=== PATIENT | male | born 1960 | race Two or more races ===

== ENCOUNTER 2025-05-31 09:26 | Emergency (ER) | payer MEDICARE, OTHER ==
[~2025-05-31] VITALS: Ht 177.8 cm; Wt 108.4 kg
[2025-05-31 10:04] LABS: PLATELET COUNT (AUTO) 358 K/uL (150-450); RED BLOOD CELL COUNT(AUTO) 5.17 MIL/uL (4.50-5.90); RED CELL DISTRIBUTION WIDTH 13.1 % (11.5-14.5); WHITE BLOOD COUNT (AUTO) 19.5 K/uL (4.5-11.0)
[2025-05-31 10:09] LABS: CALCIUM, TOTAL 9.7 mg/dL (8.8-10.5); CREATININE 1.05 mg/dL (0.60-1.30); GLOMERULAR FILTR. RATE CALC > 60 mL/min (>60); GLUCOSE,RANDOM 136 mg/dL (70-110); SODIUM SERUM 137 mmol/L (136-145); UREA NITROGEN, BLOOD 20 mg/dL (7-18)
[2025-05-31] MEDS ORDERED: 0.9% SODIUM CHLORIDE 10 ML SYRINGE IVP PRN (10:15)
[2025-05-31 10:20] LABS: TROPONIN I-HIGH SENSITIVITY Less Than 4 ng/L (<76)
[2025-05-31 10:24] LABS: APPEARANCE,URINE CLEAR (CLEAR); GLUCOSE, URINE (UA) NEGATIVE (NEGATIVE); LEUKOCYTE ESTERASE ,URINE TRACE (NEGATIVE); NITRATE,URINE NEGATIVE (NEGATIVE); OCCULT BLOOD,URINE NEGATIVE (NEGATIVE); SPECIFIC GRAVITIY, URINE 1.016 (1.003-1.030)
[2025-05-31] MEDS: SODIUM CHLORIDE 0.9% 2,000 ML IV ONE (10:29)
[2025-05-31] MEDS: CefTRIAXone 1 GM/DEXTROSE 50 ML IV ONE (10:30)
[2025-05-31] MEDS: ONDANSETRON HCL 4 MG/2 ML VIAL IVP ONE (10:31)
[2025-05-31] MEDS: MORPHINE SULFATE 4 MG/ML SYRINGE IVP ONE ×3 (10:45→15:53)
[2025-05-31 11:12] LABS: LACTIC ACID 1.5 mmol/L (0.4-2.0)
[2025-05-31 11:19] LABS: ASPARTATE AMINOTRANSFERASE 25 U/L (15-37); TOTAL PROTEIN, SERUM 8.1 g/dL (6.4-8.2)
[2025-05-31] MEDS ORDERED: MORPHINE SULFATE 2 MG/ML SYRINGE IVP ONE (15:45)
[2025-05-31 15:52] VITALS: BP 126/79; PULSE 80; RESP 15; O2SAT 95
== END 2025-05-31 16:30 | disposition admitted as inpatient to this hospital (09) ==
LOC: EMS 09:26
DX: R10.84 Generalized abdominal pain (principal); R65.10 Systemic inflammatory response syndrome (SIRS) of non-infectious origin without acute organ dysfunction
CPT/HCPCS: 99285; 74176; 96365; 96375; 71045; 96361; 80048; 80076; 81001; 83605; 83690; 83880; 84484; 85025; 85610; 87040; 93005; 96376; 84145; 36415; J0696; J2270; J2405; J7030